=== PATIENT | male | born 1970 ===

== ENCOUNTER 2018-09-25 14:17 | Outpatient (CLI) | payer OTHER ==
--- NOTE | 2018-09-25 18:24 | MRI ---
MRI RIGHT ELBOW: 09/25/2018 PROVIDED CLINICAL HISTORY: Right elbow pain. FINDINGS: The biceps, brachialis, and triceps insertions appear normal. The common extensor and common flexor tendon origins appear normal. The amount of fluid within the elbow joint appears physiologic. No focal articular cartilage defect is apparent. The medial and lateral elbow ligaments appear intact. No focal concerning regional marrow or muscular signal abnormality is evident. The courses of the re gional major neurovascular structures appear unremarkable. IMPRESSION: No evidence for an acute process. POS: OFF
== END 2018-09-25 14:18 | disposition home or self-care (01) ==
LOC: BICMRI 14:17
PROVIDERS: ATTEND Orthopaedic Surgery Hand Surgery
DX: M77.11 Lateral epicondylitis, right elbow (principal)